=== PATIENT | female | born 1985 | race Caucasian/White ===

== ENCOUNTER → 2024-03-26 12:44 | Outpatient (CLI) | payer OTHER, SELFPAY ==
--- NOTE | 2024-03-26 | DI.RAD.S_ITS ---
PROCEDURE: XR KNEE LT 3V INDICATIONS: Bilateral knee pain TECHNIQUE: 3 views of the knee were acquired. COMPARISON: None. FINDINGS: Bones: No fractures or dislocations. No suspicious bony lesions. Soft tissues: Small joint effusion. No suspicious soft tissue calcifications. IMPRESSION: No acute bony abnormality . Small joint effusion. Dictated by: Guille Galicia M.D. on 03/26/2024 at 20:58 Approved by: Guille Galicia M.D. on 03/26/2024 at 20:59
--- NOTE | 2024-03-26 | DI.RAD.S_ITS ---
PROCEDURE: XR KNEE RT 3V INDICATIONS: bilateral knee pain TECHNIQUE: 3 views of the knee were acquired. COMPARISON: None. FINDINGS: Bones: No fractures or dislocations. No suspicious bony lesions. Soft tissues: No joint effusion. No suspicious soft tissue calcifications. IMPRESSION: No acute bony abnormality or significant effusion. Dictated by: Guille Galicia M.D. on 03/26/2024 at 21:00 Approved by: Guille Galicia M.D. on 03/26/2024 at 21:00
== END ==
LOC: RAD 12:52
PROVIDERS: Referring Provider Chiropractor; Visit Provider Chiropractor
DX: M17.0 Bilateral primary osteoarthritis of knee (principal); M25.462 Effusion, left knee
CPT/HCPCS: 73562